=== PATIENT | male | born 1960 | race Caucasian/White ===

== ENCOUNTER 2016-07-17 09:43 | Outpatient (CLI) | payer BC | END 2016-07-17 09:44 | disposition home or self-care (01) | DX: E78.00 Pure hypercholesterolemia, unspecified (principal); Z12.5 Encounter for screening for malignant neoplasm of prostate ==

== ENCOUNTER 2018-10-20 17:38 | Outpatient (CLI) | payer BC | END 2018-10-20 17:39 | disposition critical access hospital (66) | LOC: EMS 17:38 | PROVIDERS: ATTEND Surgery | DX: R20.2 Paresthesia of skin (principal); R10.13 Epigastric pain; R05 Cough; M54.9 Dorsalgia, unspecified | CPT/HCPCS: A0425; A0427 ==

== ENCOUNTER 2018-10-20 18:05 | Emergency (ER) | payer BC ==
--- NOTE | 2018-10-20 18:18 | ED Physician Documentation ---
History of Present Illness - Stated complaint Stated Complaint: EPIGASTRIC PX - Chief complaint Chief Complaint: Cardiac - History obtained from History obtained from: Patient - History of Present Illness Timing: Today Pain level max: 5 Pain level now: 5 - Additonal information Additional information: 58 year old male with epigastric discomfort for the past month. States worse today. Sees his PCP tomorrow for this. Has not taken anything today. Nothing makes it better or worse. Has had increased wine consumption lately. Symptoms have worsened since that time. 15 years ago had a normal cardiac workup. Review of Systems Ten Systems: 10 systems reviewed and negative Constitutional: denies: Fever, Chills Cardiac: denies: Palpitations Respiratory: denies: Cough GI: denies: Nausea, Vomiting, Diarrhea : denies: Dysuria Skin: denies: Rash Musculoskeletal: denies: Neck pain, Back pain Neurologic: denies: Headache PD PAST MEDICAL HISTORY - Past Medical History Past Medical History: Yes Other Past Medical History: PVC - Past Surgical History Past Surgical History: No - Present Medications Home Medications: Ambulatory Orders Medication Instructions Recorded Confirmed No Known Home Medications 10/20/18 10/20/18 - Allergies Allergies/Adverse Reactions: Allergies Allergy/AdvReac Type Severity Reaction Status Date / Time No Known Drug Allergies Allergy Verified 10/20/18 18:13 - Living Situation Living Arrangement: reports: At home - Social History Does the pt smoke?: No Does the pt drink ETOH?: Yes Does the pt have substance abuse?: No - Family History Family history: reports: Non contributory PD ED PE NORMAL - Vitals Vital signs reviewed: Yes - General General: Alert and oriented X 3, No acute distress, Well developed/nourished - HEENT HEENT: PERRL, Moist mucous membranes - Neck Neck: Supple, no meningeal sign - Cardiac Cardiac: RRR, Strong equal pulses - Respiratory Respiratory: No respiratory distress, Clear bilaterally - Abdomen Abdomen: Soft, Non tender, Non distended - Back Back: No CVA TTP, No spinal TTP - Derm Derm: Warm and dry - Extremities Extremities: No edema, No calf tenderness / cord - Neuro Neuro: Alert and oriented X 3 - Psych Psych: Normal mood, Normal affect Results - Vitals Vitals: Vital Signs - 24 hr 10/20/18 10/20/18 10/20/18 18:07 18:16 19:26 Temperature 36.3 C L Heart Rate 63 60 Respiratory 18 18 18 Rate Blood Pressure 139/99 H 133/91 H O2 Saturation 100 100 10/20/18 10/20/18 20:49 21:45 Temperature Heart Rate 55 L 64 Respiratory 16 12 Rate Blood Pressure 140/101 H 126/88 H O2 Saturation 100 100 Oxygen O2 Source Room air - EKG (time done) 1816 Rate: Rate (enter#) (58) Rhythm: NSR [place]: Normal Intervals: 1st degree AVB QRS: Normal Ischemia: Normal ST segments - Labs Labs: Laboratory Tests 10/20/18 10/20/18 10/20/18 18:42 18:42 18:42 WBC 4.6 L RBC 4.56 L Hgb 14.4 Hct 42.2 MCV 92.5 MCH 31.6 H MCHC 34.2 RDW 13.9 Plt Count 235 MPV 7.4 Neut # (Auto) 2.6 Lymph # (Auto) 1.5 Forest # (Auto) 0.4 Eos # (Auto) 0.1 Baso # (Auto) 0.0 Absolute Nucleated RBC 0.00 Nucleated RBC % 0.0 Sodium 142 Potassium 4.7 Chloride 103 Carbon Dioxide 27 Anion Gap 12.0 BUN 18 Creatinine 1.0 Estimated GFR (MDRD) 76 L Glucose 98 Calcium 9.4 Total Bilirubin 0.9 AST 25 ALT 22 Alkaline Phosphatase 33 L Troponin I < 0.04 Total Protein 6.6 L Albumin 4.2 Globulin 2.4 Albumin/Globulin Ratio 1.8 Lipase 31 10/20/18 21:10 WBC RBC Hgb Hct MCV MCH MCHC RDW Plt Count MPV Neut # (Auto) Lymph # (Auto) Forest # (Auto) Eos # (Auto) Baso # (Auto) Absolute Nucleated RBC Nucleated RBC % Sodium Potassium Chloride Carbon Dioxide Anion Gap BUN Creatinine Estimated GFR (MDRD) Glucose Calcium Total Bilirubin AST ALT Alkaline Phosphatase Troponin I < 0.04 Total Protein Albumin Globulin Albumin/Globulin Ratio Lipase - Rads (name of study) cxr Radiology: Prelim report reviewed, EMP read contemporaneously, See rad report (No acute disease) PD MEDICAL DECISION MAKING - ED course Complexity details: reviewed results, re-evaluated patient, considered differential (No ST elevation MD, no aortic dissection, no PE, no tension pneumothorax, no aortic aneurysm), d/w patient ED course: 58-year-old male with atypical chest pain. Negative troponin x2. No acute findings on EKG. We will have him follow-up with his doctor for a cardiac stress test. No evidence of PE. No evidence of pneumothorax or aortic dissection. Patient counseled regarding signs and symptoms for which I believe and urgent re-evaluation would be necessary. Patient with good understanding of and agreement to plan and is comfortable going home at this time This document was made in part using voice recognition software. While efforts are made to proofread this document, sound alike and grammatical errors may occur. Departure - Departure Disposition: 01 Home, Self Care Clinical Impression: Chest pain Qualifiers: Chest pain type: unspecified Qualified Code(s): R07.9 - Chest pain, unspecified Condition: Good Instructions: ED Chest Pain Atypical Unkn Cause Follow-Up: EDDIE MCKOY MD [Primary Care Provider] - Within 1 week Comments: The cause of your symptoms is unclear tonight. Follow-up with your doctor for further testing. Your heart tests are normal. You should have a cardiac stress test within the next week with your doctor. Return if you worsen. Start on a baby aspirin daily. Discharge Date/Time: 10/20/18 21:45
[2018-10-20] MEDS ORDERED: SUCRALFATE 1 GM/10 ML UDC PO STA (18:19)
[2018-10-20] MEDS ORDERED: LIDOCAINE VISCOUS 2% 15 ML UDC MM STA (18:19)
[2018-10-20] MEDS ORDERED: FAMOTIDINE 20 MG TABLET PO STA (18:19)
[2018-10-20] MEDS ORDERED: MAG HYDROX/AL HYDROX/SIMETH 30 ML UDC PO STA (18:19)
[2018-10-20 18:53] LABS: BASOPHILS % (AUTO) 0.5 %; EOSINOPHILS # (AUTO) 0.1 10^3/uL (0.0-0.7); EOSINOPHILS % (AUTO) 2.7 %; HGB - HEMOGLOBIN 14.4 g/dL (14.0-18.0); LYMPHOCYTES # (AUTO) 1.5 10^3/uL (1.5-3.5); LYMPHOCYTES % (AUTO) 33.3 %; MEAN CORPUSCULAR HEMOGLOBIN 31.6 pg (27.0-31.0); MEAN CORPUSCULAR HGB CONC 34.2 g/dL (32.0-36.0); MEAN CORPUSCULAR VOLUME 92.5 fL (80.0-94.0); MEAN PLATELET VOLUME 7.4 fL (7.4-11.4); MONOCYTES # (AUTO) 0.4 10^3/uL (0.0-1.0); MONOCYTES % (AUTO) 7.8 %; NEUTROPHILS # (AUTO) 2.6 10^3/uL (1.5-6.6); NEUTROPHILS % (AUTO) 55.7 %; PLT - PLATELET COUNT 235 10^3/uL (130-450); RED BLOOD COUNT 4.56 10^6/uL (4.70-6.10); RED CELL DISTRIBUTION WIDTH 13.9 % (12.0-15.0); WHITE BLOOD COUNT 4.6 x10^3/uL (4.8-10.8)
[2018-10-20 19:12] LABS: ALBUMIN 4.2 g/dL (3.2-5.5); ALBUMIN/GLOBULIN RATIO 1.8 (1.0-2.2); BILIRUBIN,TOTAL 0.9 mg/dL (0.2-1.0); CALCIUM 9.4 mg/dL (8.5-10.3); TOTAL PROTEIN 6.6 g/dL (6.7-8.2)
--- NOTE | 2018-10-20 19:29 | XRAY Report ---
Reason: Chest Pain Procedure Date: 10/20/2018 Accession Number: [id number] / [id number] Procedure: XR - Chest 1 View X-Ray CPT Code: 51871 FULL RESULT: EXAM: CHEST RADIOGRAPHY EXAM DATE: 10/20/2018 06:49 PM. CLINICAL HISTORY: Chest Pain. COMPARISON: None. TECHNIQUE: 1 view. FINDINGS: Lungs/Pleura: No dense consolidation. No large effusion or pneumothorax. No pulmonary edema. Mediastinum: Heart and mediastinal contours are unremarkable. Other: None. IMPRESSION: No acute radiographic pulmonary abnormalities. RADIA
[2018-10-20] MEDS ORDERED: ASPIRIN CHEW 81 MG TABLET PO STA (21:37)
[2018-10-20 21:46] VITALS: BP 126/88
== END 2018-10-20 21:45 | disposition home or self-care (01) ==
LOC: EDUNIT# → ED 18:05
DX: R07.89 Other chest pain (principal); I44.0 Atrioventricular block, first degree
CPT/HCPCS: 36415; 71045; 80053; 83690; 84484; 85025; 93005; 99284; A9270

== ENCOUNTER 2020-03-28 09:32 | Outpatient (CLI) | payer BC | END 2020-03-28 09:33 | disposition home or self-care (01) | LOC: COV 09:32 | PROVIDERS: ATTEND Family Medicine | DX: J02.9 Acute pharyngitis, unspecified (principal); R09.81 Nasal congestion; Z20.828 Contact with and (suspected) exposure to other viral communicable diseases ==

== ENCOUNTER 2020-05-01 10:47 | Outpatient (CLI) | payer OTHER | END 2020-05-01 10:48 | disposition home or self-care (01) | LOC: COV 10:47 | PROVIDERS: ATTEND Family Medicine | DX: R05 Cough (principal); J02.9 Acute pharyngitis, unspecified; R68.83 Chills (without fever); Z20.828 Contact with and (suspected) exposure to other viral communicable diseases ==

== ENCOUNTER 2021-11-05 08:00 | Outpatient (CLI) | payer OTHER ==
--- NOTE | 2021-11-05 11:59 | XRAY Report ---
PROCEDURE: Hand 3 View RT INDICATIONS: RIGHT HAND PAIN. Consider fifth metacarpal stress fracture, (repetitive golf injury) TECHNIQUE: 3 views of the hand(s) acquired. COMPARISON: None FINDINGS: Bones: In this patient with this given history, scrutiny is given to the fifth metacarpal. No focal abnormalities are seen. No findings of a stress fracture are seen on these plain films. No acute fractures or dislocations are seen elsewhere. Tiny remote avulsion fractures can be seen inv olving the mid and distal interphalangeal joints of the second finger. No suspicious bony lesions. F ocal degenerative change is seen involving the first carpometacarpal joint, with milder degenerative changes seen elsewhere. Soft tissues: No suspicious soft tissue calcifications. IMPRESSION: No significant plain film abnormality can be seen for age. No fifth metacarpal stress fracture can be seen. If there is strong clinical concern for a fifth metacarpal stress fracture, in this patient with this given history, then please consider a dedicated and MRI or nuclear medicine bone scan for further ev aluation. (assuming that there is no contraindication). Reviewed by: Milo Das MD on 11/05/2021 10:58 AM [facility] Approved by: Milo Das MD on 11/05/2021 10:58 AM [facility] Station ID: [id number]
== END 2021-11-05 23:59 | disposition home or self-care (01) ==
LOC: DI.S 08:00
PROVIDERS: ATTEND Physician Assistant
DX: M79.641 Pain in right hand (principal)